=== PATIENT | female | born 1960 | race Caucasian/White ===

== ENCOUNTER → 2024-03-04 06:34 | Day surgery (SDC) | payer OTHER, SELFPAY | LOC: GI 06:34 | PROVIDERS: ATTENDING PHYSICIAN Internal Medicine Gastroenterology | DX: Z12.11 Encounter for screening for malignant neoplasm of colon (principal); K57.30 Diverticulosis of large intestine without perforation or abscess without bleeding; K64.8 Other hemorrhoids; Z86.010 Personal history of colon polyps | CPT/HCPCS: G0105 ==

== ENCOUNTER → 2024-07-29 13:50 | Outpatient (REF) | payer OTHER, SELFPAY | LOC: HWRCS 13:50 | PROVIDERS: ATTENDING PHYSICIAN Internal Medicine Interventional Cardiology; FAMILY PHYSICIAN Family Medicine | DX: R00.2 Palpitations (principal); I49.3 Ventricular premature depolarization; R06.09 Other forms of dyspnea; R73.03 Prediabetes; E78.2 Mixed hyperlipidemia | CPT/HCPCS: 93306 ==

== ENCOUNTER 2025-05-29 09:59 | Emergency (ER) | payer OTHER, SELFPAY ==
[2025-05-29 10:06] VITALS: BP 163/118
[2025-05-29 11:21] VITALS: BMI 29.9
[2025-05-29 11:23] VITALS: BP 150/94
[2025-05-29 11:53] LABS: Hematocrit 39.9 % (37.0-47.0); Hemoglobin 13.1 g/dL (12.0-16.0); Mean Corp Hgb Conc. 32.8 g/dL (33.0-37.0); Mean Corpuscular Volume 88.3 fL (81.0-99.0); Platelet Count 189 10^3/uL (130-400); Red Cell Dist. Width 12.7 % (11.5-14.5)
[2025-05-29 12:00] VITALS: BP 156/86
--- NOTE | 2025-05-29 12:04 | ED.GENMED ---
History of Present Illness
General
Chief Complaint: Cardiac Symptoms
Time Seen by Provider: 05/29/25 11:18
History of Present Illness
History of Present Illness:
64-year-old female with history of hyperlipidemia presents to the emergency department patient heart palpitations and shortness of breath beginning abruptly this morning. States she took her pulse and noted heart rates from 110-115 with significant
variability that concern her for A-fib. The symptoms resolved upon arrival and she no longer has any shortness of breath. States she felt incapable of that to the bathroom and the symptoms were ongoing. No history of cardiac dysrhythmia. No
Chest pain
Past History
Past History
ED Past Medical History: GERD and Other (Oxford Syndrome with first ,Palpatations, Mitral Valve Prolapse, Hiatal hernia, IBS)
ED Past Surgical History: Other (Adrenalectomy)
Social History
Tobacco: Non-smoker
Alcohol: Occasional
Personal:
Living: with family
Review of Systems
Review of Systems
Allergies reviewed?: Yes
All Other Systems: ROS reviewed and negative except as documented in HPI and ROS
Phy Exam
Physical Exam
Physical Exam:
GEN: Well appearing, NAD, WDWN
HEENT: Oral mucosa moist, no scleral icterus
Cardiac: Tachycardic, regular, no murmur
Lung: No respiratory distress, no tachypnea, lungs clear to auscultation bilaterally
MSK: No gross deformity or injuries
Skin: Good color, no pallor or jaundice, no rashes
Neuro: AO x3, moves all extremities freely
Psych: Calm, cooperative
Course
Orders/Labs/Results
Orders:
Orders
05/29/25 10:00
Electrocardiogram (*1) Urgent
Reason for Study: Vertigo / Dizzy
EKG- Treatment ONCE
05/29/25 11:44
Complete Blood Count/No Diff Urgent
Comprehensive Metabolic Panel Urgent
Magnesium Urgent
TSH Urgent
Abnormal Lab Results
05/29/25
11:44
MCHC 32.8 L g/dL
(33.0-37.0)
MPV 10.5 H fL
(7.4-10.4)
AST 45 H U/L
(14-36)
05/29/25 11:44
05/29/25 11:44
Vital Signs
Initial and Last Documented VS:
Initial Vital Signs
Temp Pulse Resp BP Pulse Ox
97.3 F 120 16 163/118 100
05/29/25 10:06 05/29/25 10:06 05/29/25 10:06 05/29/25 10:06 05/29/25 10:06
Last Documented Vital Signs
Temp Pulse Resp BP Pulse Ox
97.3 F 100 12 156/86 99
05/29/25 10:06 05/29/25 12:00 05/29/25 12:00 05/29/25 12:00 05/29/25 12:06
MDM/Problems Addressed
MDM/Problems Addressed:
No evidence of cardiac dysrhythmia while on telemetry in the ED. Recommend outpatient cardiology follow-up and consideration device to identify future bouts of arrhythmia
Comment
Comment:
EKG independently interpreted by me reveals a sinus tachycardia at a rate of [address] changes
*Pulse Oximetry
SaO2: 99
Oxygen Mode of Delivery: Room air
Patient hypoxic: no
*Critical Care Note
Total Time (30-74mins, 75-104mins- exclusive of procedures): Not Applicable
ED Attending Note
-
Portions of this chart may have been created with voice recognition software.� Occasional wrong word or��sound alike� substitutions may have occurred due to the inherent limitations of voice recognition software.
Discharge Plan
Departure
Patient Disposition: Home (Routine Discharge)
Date of Disposition: 05/29/25
Time of Disposition: 12:40
Patient with high blood pressure during this ER visit?: No
Discharge Problem:
Heart palpitations
Instructions: Palpitations - ED (DC)
Prescriptions:
No Action
lorazepam 0.5 MG tablet
0.25 mg PO DAILY
metoprolol succinate 25 MG tablet extended release 24 hr
25 mg PO DAILY
Zyrtec 10 mg Capsule
10 mg PO DAILY
Zepbound 7.5 mg/0.5 mL Pen Injector
7.5 mg SC QWEEK
Referrals:
Axel Zelaya DO [Family Provider, Family Practice]
Activity Restrictions/Additional Instructions:
Follow up with your mail teller if symptoms reoccur, as a wearable equipment monitor phototypesetting may be indicated
Interventions
Interventions:
*Risk Screen - Suicide Last Done: 05/29/25 10:07
*General Assessment Last Done: 05/29/25 11:27
*Neglect/Abuse Screening Last Done: 05/29/25 10:07
*ED- Fall Risk Assessment Last Done: 05/29/25 11:27
*ED COVID-19 Vaccine History Last Done: 05/29/25 11:27
*ED Influenza Vaccine History Last Done: 05/29/25 11:27
*Nursing Disposition Last Done: 05/29/25 12:59
ED- Pulmonary Assessment Last Done: 05/29/25 11:56
ED- Cardiac Assessment Last Done: 05/29/25 11:56
Discharge Date and Time
Discharge Date/Time: 05/29/25 13:00
Print Language: EGYPTIAN
[2025-05-29 12:08] LABS: ALT (SGPT) 18 U/L (0-35); AST (SGOT) 45 U/L (14-36); Albumin 4.5 g/dl (3.5-5.0); Alkaline Phosphatase 59 U/L (38-126); Blood Urea Nitrogen 14 mg/dl (7-17); Calcium 9.8 mg/dl (8.4-10.2); Carbon Dioxide 26 mmol/L (22-30); Chloride 107 mmol/L (98-107); Estimated Creatinine Clearance 83 ml/min; Glucose 96 mg/dl (70-99); Magnesium 2.1 mg/dl (1.6-2.3); Potassium 4.6 mmol/L (3.5-5.1); Sodium 139 mmol/L (135-145); Total Protein 6.8 g/dl (6.3-8.2); eGFR > 60.00
[2025-05-29 12:38] LABS: TSH 1.27 uIU/ml (0.47-4.68)
== END 2025-05-29 13:00 | disposition home or self-care (01) ==
LOC: EMR 09:59
PROVIDERS: Physician Assistant; EMERGENCY PHYSICIAN Emergency Medicine; FAMILY PHYSICIAN Family Medicine
DX: R00.2 Palpitations (principal); R00.0 Tachycardia, unspecified; I34.1 Nonrheumatic mitral (valve) prolapse; E78.5 Hyperlipidemia, unspecified; K21.9 Gastro-esophageal reflux disease without esophagitis; K58.9 Irritable bowel syndrome, unspecified; K44.9 Diaphragmatic hernia without obstruction or gangrene
CPT/HCPCS: 99284; 80053; 83735; 84443; 85027; 93005